=== PATIENT | male | born 1965 | race Caucasian/White ===

== ENCOUNTER → 2016-11-16 | Outpatient (CLI) | payer OTHER ==
--- NOTE | 2016-11-16 16:33 | KCIC ---
PA and lateral chest radiographs 11/16/2016 Clinical History: Cough for 6 weeks. PA and lateral digital radiographs of the chest were obtained. No previous studies are available for comparison. The cardiac and mediastinal silhouettes are within normal limits in size and configuration. No pulmonary infiltrate is seen. No pleural effusion or pneumothorax is noted. The osseous structures are grossly intact. Impression: No radiographic evidence of active cardiopulmonary disease. Electronically signed by: Sherman Nair MD (11/16/2016 4:29 PM) [id number]
== END | disposition home or self-care (01) ==
LOC: KCIC 14:50
PROVIDERS: ATTEND Pediatrics
DX: R05 Cough (principal)
CPT/HCPCS: 71020

== ENCOUNTER → 2019-03-02 | Outpatient (CLI) | payer OTHER ==
--- NOTE | 2019-03-02 14:35 | KCIC ---
CT for coronary artery calcium scoring without IV contrast 03/02/2019 CLINICAL HISTORY: Hypertension. TECHNIQUE: Unenhanced, contiguous, 3 mm axial sections were obtained through the heart with the [id number] limited to the heart. One or more of the following individualized dose reduction techniques were utilized for this study: 1. Automated exposure control. 2. Adjustment of the mA and/or kV according to patient size. 3. Use of iterative reconstruction technique. Findings: Visual inspection of the coronary arteries demonstrate mild atherosclerotic plaque formation involving the right coronary artery. The adjacent visualized mediastinum and lungs are within normal limits. The computer generated calcium scoring utilizing BASS-130 criteria are as as follows: Left main artery 0 Left anterior descending artery 0 Left circumflex artery 0 Right coronary artery 8.8 The total calcium score is 8.8 Table: 0: No plaque is present. The chance of significant heart disease is less than 5 percent and corresponds to a very low risk for myocardial infarction. 1-10: A small amount of plaque is present the chance of significant heart disease is less than 10 percent and corresponds to a low risk for myocardial infarction. 11-100: Plaque is present. This correlates with mild heart disease and a moderate risk for myocardial infarction. 101 to 400: A moderate amount of plaque is present. This correlates with heart disease and a moderate to high risk for myocardial infarction. Over 400: A large amount of plaque is present. This correlates with a greater than 90 percent chance of a high-grade stenosis. The risk for myocardial infarction is high. IMPRESSION: The total coronary artery calcium score is 8.8. This corresponds to a low risk for a myocardial infarction. Electronically signed by: Sherman Nair MD (03/02/2019 2:32 PM) [id number]
== END | disposition home or self-care (01) ==
LOC: KCIC CT 13:34
PROVIDERS: ATTEND Internal Medicine
DX: I25.10 Atherosclerotic heart disease of native coronary artery without angina pectoris (principal); I10 Essential (primary) hypertension
CPT/HCPCS: 75571